=== PATIENT | male | born 1945 | race Caucasian/White ===

== ENCOUNTER → 2018-09-18 | Outpatient (CLI) | payer MEDICARE ==
[~2018-09-18] MED LIST: ALLOPURINOL300 MG PO; ANTI-DIARRHEA2 MG PO; ATENOLOL-CHLOR1 EAC1 PO; BEANO1 EACH PO; CALCIUM + VIT1 EACH PO; DAILY VALUE1 EACH PO; DYRENIUM50 MG PO; FEXOFENADINE H180 MG PO; GABAPENTIN300 MG PO; GAS-X125 M1 PO; GLIMEPIRIDE2 MG PO; IBUPROFEN PO; LASIX40 MG PO; LISINOPRIL10 MG PO; LISINOPRIL20 MG PO; OMEPRAZOLE40 MG PO; PLAVIX75 MG PO; POTASSIUM CHLO20 ME1 PO; PRAVASTATIN SOD10 MG PO; TRIAMTERENE PO; TRIAMTERENE-HCTZ1 EA PO; VALACYCLOVIR1000 MG PO; VITAMIN B PO
--- NOTE | 2018-09-18 13:02 | Diagnostic Imaging Report ---
EXAMINATION: PA and lateral views of the chest. COMPARISON: 07/07/2017 CLINICAL HISTORY: Heart failure, cough DISCUSSION: Interval placement of a left subclavian approach implantable cardiac device. Body projects over the left midlung. Lead projects over the expected region of the right ventricle. Lungs are well-inflated and without focal consolidation, or pneumothorax. Trace right pleural effusion. Stable cardiomediastinal contour with tortuosity and atherosclerotic calcification of the thoracic aorta. Normal heart size without pulmonary edema. No acute osseous abnormality. IMPRESSION: Trace right pleural effusion. Otherwise no acute cardiopulmonary abnormality. Signed by: Dr. Kartik Muñoz M.D. on 09/18/2018 12:59 PM
== END ==
LOC: RAD 10:52
PROVIDERS: ATTEND Family Medicine
DX: R60.9 Edema, unspecified (principal); I50.9 Heart failure, unspecified
CPT/HCPCS: 71046; 93306

== ENCOUNTER → 2018-10-25 | Outpatient (CLI) | payer MEDICARE ==
--- NOTE | 2018-10-25 11:02 | Diagnostic Imaging Report ---
Exam: Back pain History: Thoracic spine 2 views lumbar spine 4 views Comparison: None. Findings: No acute fracture. Skeletal hyperostosis with bridging osteophytes throughout the thoracic and much of the lumbar spine. Mild degenerative endplate change without significant focal narrowing. Facet arthrosis L4-5 L5-S1. Impression: No acute osseous abnormality Diffuse skeletal hyperostosis with bridging osteophytes Facet arthrosis L4-5 L5-S1 Signed by: Dr. Oz Sosa M.D. on 10/25/2018 10:59 AM
== END ==
LOC: RAD 09:04
PROVIDERS: ATTEND Family Medicine
DX: M54.6 Pain in thoracic spine (principal); M54.5 Low back pain
CPT/HCPCS: 72070; 72110

== ENCOUNTER → 2019-01-14 | Day surgery (SDC) | payer MEDICARE ==
[2019-01-10 11:56] LABS: BASOPHILS % 0.3 % (0.0-1.0); EOSINOPHILS # (AUTO) 0.1 (0.0-0.4); EOSINOPHILS % 0.8 % (0.0-6.0); HEMATOCRIT 33.5 % (38.2-49.6); HEMOGLOBIN 9.9 g/dL (14.0-18.0); LYMPHOCYTES # (AUTO) 0.9 (1.0-3.2); LYMPHOCYTES % 8.2 % (18.0-39.1); MEAN CORPUSCULAR HEMOGLOBIN 23.5 pg (28-32); MEAN CORPUSCULAR HGB CONC 29.6 g/dL (31-35); MEAN CORPUSCULAR VOLUME 79.4 fL (81-99); MONOCYTES # (AUTO) 0.8 (0.2-0.8); MONOCYTES % 6.6 % (4.4-11.3); NEUTROPHILS # (AUTO) 9.6 (2.1-6.9); NEUTROPHILS % 83.4 % (38.7-80.0); PLATELET COUNT 276 x10e3/uL (140-360); RED BLOOD COUNT 4.22 x10e6/uL (4.3-5.7); RED CELL DISTRIBUTION WIDTH 18.4 % (11.7-14.4)
[~2019-01-14] MED LIST changes: +DIGOXIN125 MCG PO; +FENTANYL CITRATE/PF 100MCG/2 ML INJ ONE; +HUMALIN N SQ; +HUMALIN R SQ; +HYDRALAZINE HCL50 MG PO; +LIDOCAINE HCL 2% LOCAL INJ 5 ML SDV VIAL INJ ONE; +METOPROLOL TART50 MG PO; +MIDAZOLAM HCL 2 MG/2 ML VIAL ONE; +PROPOFOL IV EMULSION 10 MG/ML 50 ML VIAL ONE; +XARELTO20 MG PO
--- OUTSIDE RECORDS SUMMARY | 2019-01-14 11:45 | XMS REPORT ---
Author [facility] Address Unknown Phone Unavailable Care Team Providers Care Cattle Inspector Name Role Phone BOGDAN SCHULTE Unavailable Unavailable Blanca MORALES Unavailable Unavailable Ashvin TORO Unavailable Unavailable SIERRA TOURE Unavailable Unavailable Problems This patient has no known problems. Allergies, Adverse Reactions, Alerts This patient has no known allergies or adverse reactions. Medications This patient has no known medications. Results Test Description Test Time Test Comments Text Results Atomic Results Result Comments THORACIC SPINE 2VW 2018-10-25 10:57:00 [place] [address] Patient Name: MARIZOL CARRILLO MR #: [id number] : 1945 Age/Sex: 73/M Req #: [id number] Adm Physician: Ordered by: BOGDAN SCHULTE MD Report #: [id number] Location: [facility] Room/Bed: Procedure: [id number] DX/THORACIC SPINE 2VW Exam Date: 10/25/18 Exam Time: 1020 REPORT STATUS: Signed Exam: Back pain History: Thoracic spine 2 views lumbar spine 4 views Comparison: None. Findings: No acute fracture. Skeletal hyperostosis with bridging osteophytes throughout the thoracic and much of the lumbar spine. Mild degenerative endplate change without significant focal narrowing. Facet arthrosis L4-5 L5-S1. Impression: No acute osseous abnormality Diffuse skeletal hyperostosis with bridging osteophytes Facet arthrosis L4-5 L5-S1 Signed by: Dr. Jaime Velez M.D. on 10/25/2018 10:59 AM Dictated By: JAIME VELEZ MD 58 Transcribed By: GAYATRI on 10/25/18 105 COPY TO: BOGDAN SCHULTE MD SP LUMBAR, COMPLETE MIN 4VW 2018-10-25 10:57:00 [place] [address] Patient Name: MARIZOL CARRILLO MR #: [id number] : 1945 Age/Sex: 73/M Req #: [id number] Adm Physician: Ordered by: BOGDAN SCHULTE MD Report #: [id number] Location: [facility] Room/Bed: Procedure: [id number] DX/SP LUMBAR, COMPLETE MIN 4VW Exam Date: 10/25/18 Exam Time: 1020 REPORT STATUS: Signed Exam: Back pain History: Thoracic spine 2 views lumbar spine 4 views Comparison: None. Findings: No acute fracture. Skeletal hyperostosis with bridging osteophytes throughout the thoracic and much of the lumbar spine. Mild degenerative endplate change without significant focal narrowing. Facet arthrosis L4-5 L5-S1. Impression: No acute osseous abnormality Diffuse skeletal hyperostosis with bridging osteophytes Facet arthrosis L4-5 L5-S1 Signed by: Dr. Jaime Velez M.D. on 10/25/2018 10:59 AM Dictated By: JAIME VELEZ MD 58 Transcribed By: GAYATRI on 10/25/18 1059 COPY TO: BOGDAN SCHULTE MD CHEST 2 VIEWS 2018-09-18 12:56:00 [place] [address] Patient Name: MARIZOL CARRILLO MR #: [id number] : 1945 Age/Sex: 73/M Req #: [id number] Adm Physician: Ordered by: BOGDAN SCHULTE MD Report #: [id number] Location: [facility] Room/Bed: Procedure: [id number] DX/CHEST 2 VIEWS Exam Date: 09/18/18 Exam Time: 1220 REPORT STATUS: Signed EXAMINATION: PA and lateral views of the chest. RICKIE RISON: 07/07/2017 CLINICAL HISTORY: Heart failure, cough DISCUSSION: Interval placement of a left subclavian approach implantable cardiac device. Body projects over the left midlung. Lead projects over the expected region of the right ventricle. Lungs are well-inflated and without focal consolidation, or pneumothorax. Trace right pleural effusion. Stable cardiomediastinal contour with tortuosity and atherosclerotic calcification of the thoracic aorta. Normal heart size without pulmonary edema. No acute osseous abnormality. IMPRESSION: Trace right pleural effusion. Otherwise no acute cardiopulmonary abnormality. Signed by: Dr. Sierra Bryant M.D. on 09/18/2018 12:59 PM Dictated By: SIERRA BRYANT MD 1258 Transcribed By: GAYATRI on 09/18/18 1259 COPY TO: BOGDAN SCHULTE MD HIP LEFT 2-3 VW (+/- PELVIS) [place] [address] Patient Name: MARIZOL CARRILLO MR #: [id number] : 1945 Age/Sex: 72/M Req #: [id number] Adm Physician: Ordered by: ABISAI MORALES MD Report #: [id number] Location: ER Room/Bed: Procedure: [id number] DX/HIP LEFT 2-3 VW (+/- PELVIS) Exam Date: Exam Time: REPORT STATUS: Signed LOWER LEG LEFT HIP LEFT 2-3 VW (+/- PELVIS) HISTORY: Status post fall and laceration COMPARISON: None FINDINGS: Bones: No displaced fracture. The left hip is unremarkable Osseous alignment is within normal limits. Joints: Total knee arthroplasty without loosening or hardware failure. Evidence of prior surgical procedure on the right hip consistent with total hip arthroplasty. Soft tissues: Distal lower extremity edema and evidence of anterior pretibial laceration at the mid to distal lower extremity. No evidence of radiopaque foreign bodies. Multiple pretibial vascular phleboliths. IMPRESSION: No acute osseous abnormality in the left leg or left hip. Pretibial soft tissue laceration without underlying radiopaque foreign body Signed by: Dr. Danial Haines M.D. on 07/29/2017 10:36 PM Dictated By: DANIAL LAZARO MD 35 Transcribed By: GAYATRI on 07/29/172235 COPY TO: ABISAI MORALES MD LOWER LEG LEFT [place] [address] Patient Name: MARIZOL CARRILLO MR #: [id number] : 1945 Age/Sex: 72/M Req #: [id number] Adm Physician: Ordered by: ABISAI MORALES MD Report #: [id number] Location: ER Room/Bed: Procedure: [id number] DX/LOWER LEG LEFT Exam Date: 07/29/17 Exam Time: 2214 REPORT STATUS: Signed LOWER LEG LEFT HIP LEFT 2-3 VW (+/- PELVIS) HISTORY: Status post fall and laceration COMPARISON: None FINDINGS: Bones: No displaced fracture. The left hip is unremarkable Osseous alignment is within normal limits. Joints: Total knee arthroplasty without loosening or hardware failure. Evidence of prior surgical procedure on the right hip consistent with total hip arthroplasty. Soft tissues: Distal lower extremity edema and evidence of anterior pretibial laceration at the mid to distal lower extremity. No evidence of radiopaque foreign bodies. Multiple pretibial vascular phleboliths. IMPRESSION: No acute osseous abnormality in the left leg or left hip. Pretibial soft tissue laceration without underlying radiopaque foreign body Signed by: Dr. Danial Haines M.D. on 07/29/2017 10:36 PM Dictated By: DANIAL LAZARO MD 35 Transcribed By: GAYATRI on 07/29/172235 COPY TO: ABISAI MORALES MD CT BRAIN WO [place] [address] Patient Name: MARIZOL CARRILLO MR #: [id number] : 1945 Age/Sex: 72/M Req #: [id number] Adm Physician: Ordered by: TITO TORO MD Report #: [id number] Location: ER Room/Bed: Procedure: [id number] CT/CT BRAIN WO Exam Date: 07/07/17 Exam Time: 1455 REPORT STATUS: Signed Examination: CT BRAIN WITHOUT CONTRAST History:Vision loss. Dizziness. Comparison studies:None Technique: Axial images were obtained from the skull base to the vertex. Coronal and sagittal images reconstructed from the axial data. Intravenous contrast: None Findings: Scalp: No abnormalities. Bones: No fractures, blastic or lytic lesions. Brain sulci: Mild volume loss for age. Ventricles: Ex vacuo dilatation. No h ydrocephalus. Extra-axial space: No abnormalities. Parenchyma: There are mild confluent areas of hypoattenuation in the periventricular and subcortical white matter, nonspecific . No masses, hemorrhage, or acute cortical based vascular insults. Sellar/suprasellar region: No abnormalities. Craniocervical junction: Patent foramen magnum. No Chiari one malformation. Incidental findings: Atherosclerotic calcification of the cavernous and supraclinoid internal carotid and V4 segments of the bilateral vertebral arteries.. Impression: 1. No acute intracranial abnormality. 2. Mild chronic microvascular ischemic change and volume loss. Signed by: Dr. Kavon Gayle M.D. on 07/07/2017 3:53 PM Dictated By: KAVON GALVEZ MD 8193 Transcribed By: GAYATRI on 07/07/17 3756 COPY TO: TITO TORO MD [facility] (PORTABLE) [place] [address] Patient Name: MARIZOL CARRILLO MR #: [id number] : 1945 Age/Sex: 72/M Req #: [id number] Adm Physician: Ordered by: TITO TORO MD Report #: [id number] Location: ER Room/Bed: Procedure: [id number] DX/CHEST SINGLE (PORTABLE) Exam Date: 07/07/17 Exam Time: 1455 REPORT STATUS: Signed PROCEDURE: A single AP view of the chest. COMPARISON: Chest x- ray 06/15/2017. INDICATIONS: LEFT ARM PAIN FINDINGS: Lines/tubes: None. Lungs: The lungs are well inflated and clear. There is no evidence of pneumonia or pulmonary edema. Pleura: There is no pleural effusion or pneumothorax. Heart and mediastinum: The heart and the mediastinum are unremarkable. Bones: No acute bony abnormality. IMPRESSION: No acute cardiopulmonary disease. Dictated by: Oliverio Vences M.D. on 07/07/2017 at 16:05 Electronically approved by: Oliverio Vences M.D. on 07/07/2017 at 16:05 Dictated By: OLIVERIO VENCES MD 160 Transcribed By: YORDY on 07/07/17 1605 COPY TO: TITO TORO MD CHEST 2 VIEWS [place] [address] Patient Name: MARIZOL CARRILLO MR #: [id number] : 1945 Age/Sex: 72/M Req #: [id number] Adm Physician: Ordered by: SIERRA TOURE MD Report #: [id number] Location: [facility] Room/Bed: Procedure: [id number] DX/CHEST 2 VIEWS Exam Date: 06/15/17 Exam Time: 1002 REPORT STATUS: Signed PROCEDURE: Frontal and lateral views of the chest. COMPARISON: Chest 2 views 06/18/2016. INDICATIONS: PRE OPERATIVE CHEST X-RAY FOR HEART CATHETER FINDINGS: Lines/tubes: None. Lungs: The lungs are well inflated and clear. There is no evidence of pneumonia or pulmonary edema. Pleura: There is no pleural effusion or pneumothorax. Heart and mediastinum: The heart and the mediastinum are normal. Bones: No acute bony abnormality. Degenerative changes of the thoracic spine. IMPRESSION: No acute radiographic abnormality. Dictated by: Anil Murphy M.D. on 06/15/2017 at 10:41 Electronically approved by: Anil Murphy M.D. on 06/15/2017 at 10:41 Dictated By: ANIL MURPHY MD 1041 Transcribed By: YORDY on 06/15/17 1041 COPY TO: SIERRA TOURE MD
[2019-01-14 14:36] VITALS: BP 164/88
== END | disposition home or self-care (01) ==
LOC: OR 11:42
PROVIDERS: ATTEND Internal Medicine Gastroenterology
DX: R19.4 Change in bowel habit (principal); D12.2 Benign neoplasm of ascending colon; K62.1 Rectal polyp; K64.8 Other hemorrhoids; Z71.3 Dietary counseling and surveillance; E11.9 Type 2 diabetes mellitus without complications; I25.10 Atherosclerotic heart disease of native coronary artery without angina pectoris; I10 Essential (primary) hypertension; E66.9 Obesity, unspecified; D64.9 Anemia, unspecified; G47.30 Sleep apnea, unspecified; I48.91 Unspecified atrial fibrillation; I49.5 Sick sinus syndrome; Z01.810 Encounter for preprocedural cardiovascular examination; Z01.812 Encounter for preprocedural laboratory examination; Z79.02 Long term (current) use of antithrombotics/antiplatelets; Z68.36 Body mass index [BMI] 36.0-36.9, adult; Z95.0 Presence of cardiac pacemaker
CPT/HCPCS: 36415 ×2; 45385; 82948; 85025; 93005; J2001; J2250; J2704; 45378

== ENCOUNTER → 2019-02-11 | Day surgery (SDC) | payer MEDICARE ==
[~2019-02-11] MED LIST changes: -MIDAZOLAM HCL 2 MG/2 ML VIAL ONE; +PROPOFOL IV EMULSION 10 MG/ML 20 ML VIAL ONE; -PROPOFOL IV EMULSION 10 MG/ML 50 ML VIAL ONE
--- OUTSIDE RECORDS SUMMARY | 2019-02-11 10:33 | XMS REPORT | Summary of Care ---
Author Author [facility] Outpatient Imaging [facility] Outpatient [facility] Address Unknown Phone Unavailable Encounter HQ Encntr_dot(FIN) [id number] Date(s): 02/04/19 - 02/04/19 [facility] Outpatient Imaging [facility] [address] [facility], [address] [place] [address] [phone] Discharge Disposition: Home or Self Care Attending Physician: Mariah Moore MD Referring Physician: Mariah Moore MD Vital Signs No data available for this section Problem List No data available for this section Allergies, Adverse Reactions, Alerts No data available for this section Medications No data available for this section Results No data available for this section Immunizations No data available for this section Procedures No data available for this section Social History No data available for this section Assessment and Plan No data available for this section
--- OUTSIDE RECORDS SUMMARY | 2019-02-11 10:33 | XMS REPORT | Continuity of Care Document ---
Author Author [facility] Address Unknown Phone Unavailable Problems Problem Status Onset Date Classification Date Reported Comments Source 715.90 - OSTEOARTHROS NO Active 07/13/2012 [facility] [place] Medications Medication Details Route Status Patient Instructions Ordering Provider Order Date Source Allergies, Adverse Reactions, Alerts Substance Category Reaction Severity Reaction type Status Date Reported Comments Source Immunizations Immunization Date Given Site Status Last Updated Comments Source Results Order Name Results Value Reference Range Date Interpretation Comments Source Abdomen/Pelvis w IV contrast CT Abdomen/Pelvis w IV contrast CT EXAM: CT ABDOMEN AND PELVIS WITH CONTRAST DATE: 02/04/2019 11:03 CDT INDICATION: D64.9 Anemia, unspecified - R19.5 Other fecal abnormalities ADDITIONAL INFORMATION: None. COMPARISON: None. TECHNIQUE: Volumetric CT of the abdomen and pelvis is acquired following the intravenous administration of contrast. Axial, coronal and sagittal images are provided. IV contrast: 100 mL Visipaque 320 Enteric contrast: None. DLP: 2588 mGy-cm FINDINGS: Lines, tubes and hardware: None. Lower thorax: Clear. Coronary artery calcifications are present. Partially visualized cardiac implantable cardiac defibrillator lead extending into the right ventricle. Liver: Normal. Biliary tree: No intra- or extrahepatic biliary ductal dilation. Gallbladder: Gallstones identified. No inflammation. Pancreas: Normal. Spleen: Normal. Adrenals: Normal. Kidneys and ureters: Bilateral renal cortical thinning and scarring likely representing sequelae of chronic medical renal disease. A 5.7 x 4.6 cm cystic structure along the posterior margin of the right kidney could represent an exophytic renal cyst or retroperitoneal cyst. Bladder: Distended with mild wall thickening and submucosal fat deposition. Reproductive organs: Prostate and seminal vesicles are unremarkable. Gastrointestinal tract: Stomach: Normal. Small bowel: Normal. Colon: Uninflamed diverticula. Appendix: Normal. Peritoneum, mesentery and retroperitoneum: No free air, ascites or loculated fluid. Lymph nodes: Normal. Vasculature: Aorta and branches: Vascular calcifications. IVC and veins: Normal. Portal vasculature: Normal. Bones: Left hip replacement. Soft tissues: Small bilateral fat-containing inguinal hernias. IMPRESSION: 1. No acute abdominal abnormality. 2. Cholelithiasis without evidence of acute cholecystitis. 3. Bilateral renal cortical thinning and scarring consistent with chronic medical renal disease. 5.7 cm cystic structure adjacent to the right kidney could represent an exophytic simple renal cyst or retroperitoneal cyst. 4. Bladder distended with mild wall thickening and submucosal fat deposition. Correlated for acute or chronic cystitis. 5. Colonic diverticulosis without evidence of acute diverticulitis. 02/04/2019 - - Read by: Frantz Flores MD Dictated Date/time: 02/04/19 12:16 Electronically Signed by: Frantz Flores MD 02/04/19 12:30 FINAL REPORT [facility] Vital Signs Vital Sign Value Date Comments Source Encounters Location Location Details Encounter Type Encounter Number Reason For Visit Attending Provider ADM Date DC Date Status Source OD [id number] 715.90 - OSTEOARTHROS NO BOGDAN SCHULTE 07/13/2012 Active [facility] Outpatient Imaging - [place] [facility] [id number] Mariah Moore 02/04/2019 02/05/2019 [facility] [place] Procedures Procedure Code Date Perfomer Comments Source
[2019-02-11 14:30] VITALS: BP 166/81
== END | disposition home or self-care (01) ==
LOC: OR 10:30
PROVIDERS: ATTEND Internal Medicine Gastroenterology
DX: D64.9 Anemia, unspecified (principal); K31.7 Polyp of stomach and duodenum; K29.70 Gastritis, unspecified, without bleeding; K29.80 Duodenitis without bleeding; R19.5 Other fecal abnormalities; Z71.3 Dietary counseling and surveillance; E11.9 Type 2 diabetes mellitus without complications; E66.9 Obesity, unspecified; I48.91 Unspecified atrial fibrillation; I25.10 Atherosclerotic heart disease of native coronary artery without angina pectoris; E78.00 Pure hypercholesterolemia, unspecified; Z79.02 Long term (current) use of antithrombotics/antiplatelets; Z79.4 Long term (current) use of insulin; Z68.34 Body mass index [BMI] 34.0-34.9, adult; Z95.0 Presence of cardiac pacemaker; Z95.5 Presence of coronary angioplasty implant and graft
CPT/HCPCS: 36415; 43239; 82948; J2001; J2704

== ENCOUNTER 2019-05-02 11:24 | Emergency (ER) | payer MEDICARE ==
[~2019-05-02] VITALS: Ht 370.8 cm; Wt 127.9 kg
[~2019-05-02 11:24] MED LIST changes: -FENTANYL CITRATE/PF 100MCG/2 ML INJ ONE; -LIDOCAINE HCL 2% LOCAL INJ 5 ML SDV VIAL INJ ONE; -PROPOFOL IV EMULSION 10 MG/ML 20 ML VIAL ONE
--- OUTSIDE RECORDS SUMMARY | 2019-05-02 11:28 | XMS REPORT | Continuity of Care Document ---
Author Author [facility] Address Unknown Phone Unavailable Care Team Providers Care Implant Coordinator Name Role Phone Continuent Unavailable Unavailable Problems Problem Status Onset Date Classification Date Reported Comments Source 715.90 - OSTEOARTHROS NO Active 07/13/2012 [facility] [place] Medications No Data Provided for This Section Allergies, Adverse Reactions, Alerts No Known Medication Allergies Immunizations No Data Provided for This Section Results No Data Provided for This Section Pathology Reports No Data Provided for This Section Diagnostic Reports Report Value Date Source Abdomen/Pelvis w IV contrast CT EXAM: CT [...] diverticulosis without evidence of acute diverticulitis. 02/04/2019 [facility] Consultation Notes No Data Provided for This Section Discharge Summaries No Data Provided for This Section History and Physicals No Data Provided for This Section Vital Signs No Data Provided for This Section Encounters Location Location Details Encounter Type Encounter Number Reason For Visit Attending Provider ADM Date DC Date Status Source OD [id number] 715.90 - OSTEOARTHROS NO BOGDAN SCHULTE 07/13/2012 Active [facility] Outpatient Imaging - [place] Out[facility] Di[facility] Services [id number] Mariah Moore 02/04/2019 [facility] [place] Procedures No Data Provided for This Section Assessment and Plan No Data Provided for This Section Plan of Care No Data Provided for This Section Social History Social History Date Source No data available for this section [facility]/05/[facility] [place] Family History No Data Provided for This Section Advance Directives No Data Provided for This Section Functional Status No Data Provided for This Section
[2019-05-02 13:01] LABS: BASOPHILS % 0.3 % (0.0-1.0); EOSINOPHILS % 0.1 % (0.0-6.0); HEMATOCRIT 37.2 % (38.2-49.6); HEMOGLOBIN 11.9 g/dL (14.0-18.0); LYMPHOCYTES # (AUTO) 0.4 (1.0-3.2); LYMPHOCYTES % 2.8 % (18.0-39.1); MEAN CORPUSCULAR HEMOGLOBIN 27.9 pg (28-32); MEAN CORPUSCULAR VOLUME 87.3 fL (81-99); MONOCYTES # (AUTO) 0.7 (0.2-0.8); MONOCYTES % 4.2 % (4.4-11.3); NEUTROPHILS # (AUTO) 14.2 (2.1-6.9); NEUTROPHILS % 91.9 % (38.7-80.0); PLATELET COUNT 190 x10e3/uL (140-360); RED BLOOD COUNT 4.26 x10e6/uL (4.3-5.7); RED CELL DISTRIBUTION WIDTH 17.2 % (11.7-14.4)
[2019-05-02 13:02] LABS: BILIRUBIN,URINE NEGATIVE (NEGATIVE); CLARITY,URINE SL CLOUDY (CLEAR); COLOR,URINE YELLOW (YELLOW); KETONES,URINE NEGATIVE (NEGATIVE); LEUKOCYTE ESTERASE ,URINE SMALL (NEGATIVE); NITRITE,URINE NEGATIVE (NEGATIVE); PROTEIN,URINE DIPSTICK 1+ (NEGATIVE); URINE UROBILINOGEN 0.2 mg/dL (0.2 - 1)
[2019-05-02] MEDS: CEFTRIAXONE SOD 1 GM/NS 50 ML 50 ML IV SCH (13:12)
[2019-05-02] MEDS: ACETAMINOPHEN 325 MG TAB PO NR (13:13)
[2019-05-02 13:19] LABS: BACTERIA,URINE FEW /HPF; WBC,URINE (MAN) 0-5 /HPF (0-5)
[2019-05-02 13:21] LABS: ALBUMIN/GLOBULIN RATIO 0.9 (0.8-2.0); CALCIUM 8.4 mg/dL (8.4-10.2); CREATININE, SERUM 2.65 mg/dL (0.72-1.25)
[2019-05-02 13:28] LABS: CREATINE KINASE MB 1.3 ng/mL (0-5.0)
[2019-05-02] MEDS ORDERED: DIATRIZOATE MEGL/DIATRIZOA SOD 30 ML BTL PO ONE (13:43)
--- NOTE | 2019-05-02 14:50 | Diagnostic Imaging Report ---
Chest, 1 view, 05/02/2019. History: Fall. Comparison: 09/18/2018. Findings: There is poor inspiration. The cardiomediastinal silhouette and pulmonary vasculature are within normal limits for a portable exam. There is no focal consolidation or pleural effusion. Left subclavian single lead pacer is unchanged in position. There are no acute osseous or soft tissue abnormalities. Impression: No acute cardiopulmonary abnormality. Signed by: Arian Parsons on 05/02/2019 2:46 PM
--- NOTE | 2019-05-02 17:11 | Diagnostic Imaging Report ---
CT of the abdomen and pelvis, without contrast, 05/02/2019. History: Fall, weakness, abdominal pain. Comparison: Report of CT from 06/18/2016. Images are not available on PACS. Technique: Multidetector CT scanning of the abdomen and pelvis was performed from the level of the lung bases to the inferior pubic rami without intravenous contrast. Oral contrast was given. Coronal and sagittal multiplanar reformations were obtained. RADIATION DOSE: Total DLP: 1114 mGy*cm Dose modulation, iterative reconstruction, and/or weight based adjustment of the mA/kV was utilized to reduce the radiation dose to as low as reasonably achievable. Discussion: Examination is limited without contrast. Lung bases: There is right basilar atelectasis with small right pleural effusion. Abdomen: Gallstones are present. There is no gallbladder wall thickening. A 6.6 cm simple cyst is seen between the right psoas muscle and medial aspect of the right kidney. The liver, biliary tree, spleen, pancreas, adrenal glands, and left kidney are unremarkable. The abdominal aorta is within normal limits. There is no bowel dilatation. The appendix is visualized and is normal. There is no evidence of adenopathy or free fluid. Pelvis: The bladder, prostate, and seminal vesicles are unremarkable. There is no evidence of free fluid or adenopathy. Bones and soft tissues: Right hip replacement is noted. Degenerative changes are present throughout the lumbar spine without evidence of lytic or sclerotic lesion. IMPRESSION: 1. Cholelithiasis. 2. Simple cyst arising exophytically from the medial aspect of the right kidney versus the right retroperitoneum. Otherwise unremarkable noncontrast exam. No evidence of bowel obstruction or appendicitis. No acute osseous findings. Signed by: Arian Parsons on 05/02/2019 5:07 PM
[2019-05-02] MEDS ORDERED: KEFLEX500 MG PO (17:36)
[2019-05-02 17:45] VITALS: BP 110/87
== END 2019-05-02 19:40 | disposition home or self-care (01) ==
LOC: ER 11:24
DX: S61.411A Laceration without foreign body of right hand, initial encounter (principal); W01.0XXA Fall on same level from slipping, tripping and stumbling without subsequent striking against object, initial encounter; Y92.531 Health care provider office as the place of occurrence of the external cause
CPT/HCPCS: 36415; 71045; 74176; 80053; 81001; 82550; 82553; 83605; 84484; 85025; 87040; 87086; 99284; J0696

== ENCOUNTER 2020-09-27 14:35 | Emergency (ER) | payer MEDICARE ==
[~2020-09-27] VITALS: Ht 188 cm; Wt 127.9 kg
[~2020-09-27 14:35] MED LIST changes: +KEFLEX500 MG PO
[2020-09-27 15:15] LABS: BASOPHILS % 0.3 % (0.0-1.0); HEMATOCRIT 42.8 % (38.2-49.6); LYMPHOCYTES # (AUTO) 0.4 (1.0-3.2); LYMPHOCYTES % 3.5 % (18.0-39.1); MEAN CORPUSCULAR HGB CONC 32.7 g/dL (31-35); MEAN CORPUSCULAR VOLUME 94.9 fL (81-99); MONOCYTES # (AUTO) 0.4 (0.2-0.8); MONOCYTES % 3.5 % (4.4-11.3); NEUTROPHILS # (AUTO) 11.6 (2.1-6.9); PLATELET COUNT 182 x10e3/uL (140-360); RED BLOOD COUNT 4.51 x10e6/uL (4.3-5.7); RED CELL DISTRIBUTION WIDTH 14.4 % (11.7-14.4)
[2020-09-27 15:28] LABS: ANION GAP 14.8 mmol/L (8-16); CALCIUM 8.4 mg/dL (8.4-10.2); CREATININE, SERUM 1.44 mg/dL (0.72-1.25); POTASSIUM 3.8 mmol/L (3.5-5.1)
[2020-09-27 15:37] LABS: CLARITY,URINE CLEAR (CLEAR); COLOR,URINE STRAW (YELLOW); KETONES,URINE NEGATIVE (NEGATIVE); LEUKOCYTE ESTERASE ,URINE NEGATIVE (NEGATIVE); NITRITE,URINE NEGATIVE (NEGATIVE); PROTEIN,URINE DIPSTICK 2+ (NEGATIVE); URINE UROBILINOGEN 0.2 mg/dL (0.2 - 1)
[2020-09-27 15:55] LABS: ALBUMIN/GLOBULIN RATIO 0.8 (0.8-2.0)
[2020-09-27 16:05] LABS: LYMPHOCYTES % (MANUAL) 6 % (19-48); MONOCYTES % (MANUAL) 1 % (3.4-9.0); NEUTROPHILS % (MANUAL) 92 % (40-74)
[2020-09-27 16:06] LABS: PLATELET ESTIMATE ADEQUATE; PLATELET MORPHOLOGY COMMENT NORMAL; RBC MORPHOLOGY COMMENT NORMAL
[2020-09-27 16:25] LABS: EPITHELIAL CELLS,URINE FEW /LPF; RBC,URINE 0-5 /HPF (0-5)
[2020-09-27 16:26] LABS: RENAL EPITHELIAL CELLS,URINE RARE
== END 2020-09-27 18:24 | disposition home or self-care (01) ==
LOC: ER 14:56
DX: R53.1 Weakness (principal); I10 Essential (primary) hypertension; E11.65 Type 2 diabetes mellitus with hyperglycemia; I25.10 Atherosclerotic heart disease of native coronary artery without angina pectoris; I48.91 Unspecified atrial fibrillation; E78.5 Hyperlipidemia, unspecified; M10.9 Gout, unspecified; K21.9 Gastro-esophageal reflux disease without esophagitis; Z95.810 Presence of automatic (implantable) cardiac defibrillator; Z96.653 Presence of artificial knee joint, bilateral
CPT/HCPCS: 36415; 71045; 80053; 81001; 83880; 84484; 85025; 93005; 99284

== ENCOUNTER → 2021-01-05 | Outpatient (CLI) | payer MEDICARE ==
[~2021-01-05] MED LIST changes: +REGADENOSON 0.4 MG/5 ML SYR IV ONE
== END ==
LOC: NM 08:46
PROVIDERS: ATTEND Internal Medicine Cardiovascular Disease
DX: Z01.810 Encounter for preprocedural cardiovascular examination (principal); R07.9 Chest pain, unspecified; I25.10 Atherosclerotic heart disease of native coronary artery without angina pectoris
CPT/HCPCS: 78452; 93017; 93306; A9502; J2785

== ENCOUNTER → 2021-01-20 | Day surgery (SDC) | payer MEDICARE ==
[2021-01-15 09:23] LABS: BASOPHILS % 0.4 % (0.0-1.0); EOSINOPHILS # (AUTO) 0.1 (0.0-0.4); EOSINOPHILS % 0.9 % (0.0-6.0); HEMATOCRIT 42.1 % (38.2-49.6); HEMOGLOBIN 13.5 g/dL (14.0-18.0); LYMPHOCYTES # (AUTO) 0.9 (1.0-3.2); LYMPHOCYTES % 8.2 % (18.0-39.1); MEAN CORPUSCULAR HEMOGLOBIN 30.8 pg (28-32); MEAN CORPUSCULAR HGB CONC 32.1 g/dL (31-35); MEAN CORPUSCULAR VOLUME 96.1 fL (81-99); MONOCYTES # (AUTO) 0.8 (0.2-0.8); MONOCYTES % 7.3 % (4.4-11.3); NEUTROPHILS # (AUTO) 9.2 (2.1-6.9); NEUTROPHILS % 82.8 % (38.7-80.0); PLATELET COUNT 229 x10e3/uL (140-360); RED BLOOD COUNT 4.38 x10e6/uL (4.3-5.7); RED CELL DISTRIBUTION WIDTH 13.8 % (11.7-14.4)
[2021-01-15 09:41] LABS: ALBUMIN 3.4 g/dL (3.5-5.0); ANION GAP 12.5 mmol/L (8-16); CALCIUM 8.3 mg/dL (8.4-10.2); CHOL/HDL RATIO 3.8 (3.9-4.7); CREATININE, SERUM 1.72 mg/dL (0.72-1.25); POTASSIUM 4.5 mmol/L (3.5-5.1)
[2021-01-20] VITALS (12 sets, daily range): BP systolic 124–166; BP diastolic 51–86
[~2021-01-20] VITALS: Ht 188 cm; Wt 107.5 kg
[~2021-01-20] MED LIST changes: +CLOPIDOGREL BISULFATE 75 MG TAB ONE; +DYMISTA NASAL S23 GM INH; +FENTANYL CITRATE/PF 100MCG/2 ML INJ ONE; +HEPARIN SOD (PORCINE) 1000 UNIT/ML 30ML ONE; +HEPARIN SOD/SOD CHLORIDE 1,000 ML ONE; +IOPAMIDOL 370 MG/ML 200 ML INFUS..BTL INJ ONE; +LIDOCAINE HCL 2% LOCAL 20 ML VIAL ONE; +MIDAZOLAM HCL 2 MG/2 ML VIAL ONE; +NITROGLYCERIN/D5W 200 MCG/ML 250 ML ONE; -REGADENOSON 0.4 MG/5 ML SYR IV ONE; +SODIUM CHLORIDE 0.9% 1000ML 1,000 ML ONE; +VERAPAMIL HCL 2.5 MG/ML 2 ML VIAL ONE
[2021-01-20 08:13] LABS: ALBUMIN 3.2 g/dL (3.5-5.0); ALBUMIN/GLOBULIN RATIO 1.1 (0.8-2.0); ANION GAP 13.1 mmol/L (8-16); CALCIUM 7.8 mg/dL (8.4-10.2); CREATININE, SERUM 1.48 mg/dL (0.72-1.25); POTASSIUM 4.1 mmol/L (3.5-5.1)
== END | disposition home or self-care (01) ==
LOC: CATH LAB 06:27
PROVIDERS: ATTEND Internal Medicine
DX: I25.118 Atherosclerotic heart disease of native coronary artery with other forms of angina pectoris (principal); R94.39 Abnormal result of other cardiovascular function study; I48.91 Unspecified atrial fibrillation; I11.0 Hypertensive heart disease with heart failure; I50.9 Heart failure, unspecified; E13.8 Other specified diabetes mellitus with unspecified complications; E78.00 Pure hypercholesterolemia, unspecified; Z01.812 Encounter for preprocedural laboratory examination; Z20.822 Contact with and (suspected) exposure to COVID-19; Z79.02 Long term (current) use of antithrombotics/antiplatelets; Z79.4 Long term (current) use of insulin; Z68.32 Body mass index [BMI] 32.0-32.9, adult; Z95.5 Presence of coronary angioplasty implant and graft; Z95.0 Presence of cardiac pacemaker; Z87.440 Personal history of urinary (tract) infections
CPT/HCPCS: 93454; C9600; 36415; 80053; 80061; 85025; 92928; 99152; 99153; C1725; C1769; C1874; C1887; J1644; J2001; J2250; J3010; J7030; Q9967; U0002

== ENCOUNTER 2023-03-12 20:24 | Emergency (ER) | payer MEDICARE ==
[~2023-03-12] VITALS: Ht 188 cm; Wt 107.5 kg
[~2023-03-12 20:24] MED LIST changes: -CLOPIDOGREL BISULFATE 75 MG TAB ONE; -FENTANYL CITRATE/PF 100MCG/2 ML INJ ONE; -HEPARIN SOD (PORCINE) 1000 UNIT/ML 30ML ONE; -HEPARIN SOD/SOD CHLORIDE 1,000 ML ONE; -IOPAMIDOL 370 MG/ML 200 ML INFUS..BTL INJ ONE; -LIDOCAINE HCL 2% LOCAL 20 ML VIAL ONE; -MIDAZOLAM HCL 2 MG/2 ML VIAL ONE; -NITROGLYCERIN/D5W 200 MCG/ML 250 ML ONE; -SODIUM CHLORIDE 0.9% 1000ML 1,000 ML ONE; -VERAPAMIL HCL 2.5 MG/ML 2 ML VIAL ONE
[2023-03-12 21:46] LABS: BACTERIA,URINE FEW /HPF; CLARITY,URINE CLEAR (CLEAR); COLOR,URINE YELLOW (YELLOW); EPITHELIAL CELLS,URINE FEW /LPF; KETONES,URINE NEGATIVE (NEGATIVE); LEUKOCYTE ESTERASE ,URINE NEGATIVE (NEGATIVE); NITRITE,URINE NEGATIVE (NEGATIVE); RBC,URINE 0-5 /HPF (0-5); URINE UROBILINOGEN 0.2 mg/dL (0.2 - 1)
[2023-03-12 21:47] LABS: PROTEIN,URINE DIPSTICK 2+ (NEGATIVE)
[2023-03-12 21:55] LABS: BASOPHILS % 0.3 % (0.0-1.0); EOSINOPHILS # (AUTO) 0.1 (0.0-0.4); EOSINOPHILS % 0.5 % (0.0-6.0); HEMATOCRIT 41.6 % (38.2-49.6); HEMOGLOBIN 13.6 g/dL (14.0-18.0); LYMPHOCYTES # (AUTO) 0.5 (1.0-3.2); LYMPHOCYTES % 4.1 % (18.0-39.1); MEAN CORPUSCULAR HEMOGLOBIN 30.4 pg (28-32); MEAN CORPUSCULAR HGB CONC 32.7 g/dL (31-35); MEAN CORPUSCULAR VOLUME 92.9 fL (81-99); MONOCYTES # (AUTO) 0.9 (0.2-0.8); MONOCYTES % 7.1 % (4.4-11.3); NEUTROPHILS # (AUTO) 11.5 (2.1-6.9); NEUTROPHILS % 87.6 % (38.7-80.0); PLATELET COUNT 206 x10e3/uL (140-360); RED BLOOD COUNT 4.48 x10e6/uL (4.3-5.7); RED CELL DISTRIBUTION WIDTH 13.9 % (11.7-14.4)
[2023-03-12 21:58] LABS: ALBUMIN 3.8 g/dL (3.5-5.0); ALBUMIN/GLOBULIN RATIO 1.1 (0.8-2.0); ANION GAP 16.6 mmol/L (8-16); CREATININE, SERUM 1.83 mg/dL (0.72-1.25); POTASSIUM 4.6 mmol/L (3.5-5.1)
[2023-03-12 22:01] LABS: MUCUS,URINE MODERATE (RARE)
[2023-03-12 22:02] LABS: CALCIUM 11.1 mg/dL (8.4-10.2)
[2023-03-13] MEDS ORDERED: CEPHALEXIN500 MG PO (03:00)
[2023-03-13 03:11] VITALS: BP 128/91; O2SAT 100
== END 2023-03-13 03:12 | disposition home or self-care (01) ==
LOC: ER 21:08
DX: R50.9 Fever, unspecified (principal); R53.1 Weakness; N39.0 Urinary tract infection, site not specified; E11.65 Type 2 diabetes mellitus with hyperglycemia; I10 Essential (primary) hypertension; E78.5 Hyperlipidemia, unspecified; M10.9 Gout, unspecified; Z95.810 Presence of automatic (implantable) cardiac defibrillator; Z96.653 Presence of artificial knee joint, bilateral; Z96.641 Presence of right artificial hip joint
CPT/HCPCS: 36415; 71046; 80053; 81001; 84484; 85025; 93005; 99284